=== PATIENT | female | born 1970 | race Caucasian/White ===

== ENCOUNTER 2018-11-19 07:08 | Day surgery (SDC) | payer MEDICARE, OTHER ==
[~2018-11-19] VITALS: Ht 147.3 cm; Wt 53.2 kg
[~2018-11-19 07:08] MED LIST: ACETAMINOPHEN 325 MG TABLET PO PRN; CYCLOPENTOLATE HCL 2% 2 ML OPHTHALMIC SOLUTION ONE; DICLOFENAC SODIUM 0.1% 2.5 ML OPHTHALMIC SOLUTION ONE; MOXIFLOXACIN HCL 0.5% 3 ML OPHTHALMIC SOLUTION ONE; PHENYLEPHRINE HCL 2.5% 2 ML OPHTHALMIC SOLUTION ONE; RINGERS SOLUTION,LACTATED 500 ML IV ONE; TETRACAINE HCL/PF 0.5% 4 ML OPHTHALMIC SOLUTION OD ONE; TETRACAINE HCL/PF 0.5% 4 ML OPHTHALMIC SOLUTION ONE
[2018-11-19] MEDS ORDERED: ONDANSETRON HCL 4 MG/2 ML VIAL IVP ONE (07:09)
[2018-11-19] MEDS ORDERED: MIDAZOLAM HCL 2 MG/2 ML VIAL IVP ONE (07:09)
[2018-11-19] MEDS ORDERED: FentaNYL CITRATE-PF 100 MCG/2 ML VIAL IVP ONE (07:09)
[2018-11-19] MEDS ORDERED: PROPOFOL 1% 20 ML VIAL IVP ONE (07:09)
[2018-11-19] MEDS ORDERED: LIDOCAINE/PF 2% 5 ML VIAL IM ONE (07:09)
[2018-11-19] MEDS ORDERED: ROCURONIUM BROMIDE 10 MG/ML 5 ML VIAL IVP ONE (07:09)
[2018-11-19] MEDS ORDERED: ARIP10TA8 PO (07:43)
[2018-11-19] MEDS ORDERED: ZOLP10TA7 PO (07:43)
[2018-11-19] MEDS ORDERED: OMEP20 PO (07:43)
[2018-11-19] MEDS ORDERED: DOXY50 PO (07:43)
[2018-11-19] MEDS ORDERED: TYLENOL WITH CODEINE PO (07:43)
[2018-11-19] MEDS ORDERED: LEVO100 PO (07:43)
[2018-11-19] MEDS ORDERED: OXCA300T29 PO (07:43)
[2018-11-19] MEDS ORDERED: DICL2.5D8 OD (07:43)
[2018-11-19] MEDS ORDERED: MEMA10TA11 PO (07:43)
[2018-11-19] MEDS: PHENYLEPHRINE HCL 2.5% 2 ML OPHTHALMIC SOLUTION OD SCH ×3 (07:51→08:09)
[2018-11-19] MEDS ORDERED: CYCLOPENTOLATE HCL 1% 2 ML OPHTHALMIC SOLUTION ONE (07:54)
[2018-11-19] MEDS ORDERED: TROPICAMIDE 1% 2 ML OPHTHALMIC SOLUTION ONE (07:54)
[2018-11-19] MEDS ORDERED: OFLOXACIN 0.3% 5 ML OPHTHALMIC SOLUTION ONE (07:55)
[2018-11-19] MEDS ORDERED: FLURBIPROFEN SODIUM 0.03% 2.5 ML OPHTHALMIC SOLUTION ONE (07:55)
[2018-11-19] MEDS: TROPICAMIDE 1% 2 ML OPHTHALMIC SOLUTION OD SCH ×3 (07:56→08:09)
[2018-11-19] MEDS: CYCLOPENTOLATE HCL 1% 2 ML OPHTHALMIC SOLUTION OD SCH ×3 (07:56→08:09)
[2018-11-19] MEDS: OFLOXACIN 0.3% 5 ML OPHTHALMIC SOLUTION OD SCH ×3 (07:56→08:09)
[2018-11-19] MEDS: FLURBIPROFEN SODIUM 0.03% 2.5 ML OPHTHALMIC SOLUTION OD SCH ×3 (07:56→08:09)
[2018-11-19] MEDS ORDERED: SUGAMMADEX SODIUM 200 MG/2 ML VIAL IVP ONE (08:54)
[2018-11-19] MEDS ORDERED: FentaNYL CITRATE-PF 100 MCG/2 ML VIAL IVP PRN (09:00)
[2018-11-19] MEDS ORDERED: MEPERIDINE-PF 25 MG/ML VIAL IVP PRN (09:00)
[2018-11-19] MEDS ORDERED: HYDROmorphone 2 MG/ML SYRINGE IVP PRN (09:00)
[2018-11-19] MEDS ORDERED: OXYGEN THERAPY IH SCH (20:00)
== END 2018-11-19 10:30 | disposition home or self-care (01) ==
LOC: SURGERY 07:08
PROVIDERS: ATTEND Ophthalmology
DX: H25.11 Age-related nuclear cataract, right eye (principal); H26.20 Unspecified complicated cataract; E03.9 Hypothyroidism, unspecified; Q90.9 Down syndrome, unspecified; I25.2 Old myocardial infarction; Z79.899 Other long term (current) drug therapy; Z98.890 Other specified postprocedural states
CPT/HCPCS: 66982; 84703; 93005; C1780; J2250; J2405; J2704; J3010; J3490 ×2; J7120

== ENCOUNTER → 2018-12-31 | Day surgery (SDC) | payer MEDICARE, OTHER ==
[~2018-12-31] MED LIST changes: -ACETAMINOPHEN 325 MG TABLET PO PRN; +ARIP10TA8 PO; +CYCLOPENTOLATE HCL 1% 2 ML OPHTHALMIC SOLUTION ONE; -CYCLOPENTOLATE HCL 2% 2 ML OPHTHALMIC SOLUTION ONE; +DICL2.5D8 OD; -DICLOFENAC SODIUM 0.1% 2.5 ML OPHTHALMIC SOLUTION ONE; +DOXY50 PO; +KETOROLAC TROMETHAMINE 0.5% 5 ML OPHTHALMIC SOLUTION ONE; +LEVO100 PO; +MEMA10TA11 PO; +OMEP20 PO; +OXCA300T29 PO; -TETRACAINE HCL/PF 0.5% 4 ML OPHTHALMIC SOLUTION OD ONE; +TROPICAMIDE 1% 2 ML OPHTHALMIC SOLUTION ONE; +TYLENOL WITH CODEINE PO; +ZOLP10TA7 PO
[2018-12-31] MEDS: KETOROLAC TROMETHAMINE 0.5% 5 ML OPHTHALMIC SOLUTION OS SCH ×3 (07:47→07:58)
[2018-12-31] MEDS: TETRACAINE HCL/PF 0.5% 4 ML OPHTHALMIC SOLUTION OS SCH ×3 (07:47→07:58)
[2018-12-31] MEDS: MOXIFLOXACIN HCL 0.5% 3 ML OPHTHALMIC SOLUTION OS SCH ×3 (07:47→07:58)
[2018-12-31] MEDS: TROPICAMIDE 1% 2 ML OPHTHALMIC SOLUTION OS SCH ×3 (07:47→07:58)
[2018-12-31] MEDS: CYCLOPENTOLATE HCL 1% 2 ML OPHTHALMIC SOLUTION OS SCH ×3 (07:47→07:58)
[2018-12-31] MEDS: PHENYLEPHRINE HCL 2.5% 2 ML OPHTHALMIC SOLUTION OS SCH ×3 (07:47→07:58)
== END | disposition home or self-care (01) ==
LOC: SURGERY 06:35
PROVIDERS: ATTEND Ophthalmology
DX: H26.8 Other specified cataract (principal); Q90.9 Down syndrome, unspecified; Z79.899 Other long term (current) drug therapy; Z98.41 Cataract extraction status, right eye; Z96.1 Presence of intraocular lens; Z98.890 Other specified postprocedural states; Z53.8 Procedure and treatment not carried out for other reasons
CPT/HCPCS: 93005; J7120

== ENCOUNTER 2020-03-23 06:47 | Day surgery (SDC) | payer MEDICARE, OTHER ==
[2020-03-22 15:26] LABS: COVID AG,FIA SOURCE NASOPHARYNGEAL
[~2020-03-23] VITALS: Ht 154.9 cm; Wt 67.3 kg
[~2020-03-23 06:47] MED LIST changes: -OXCA300T29 PO; +OXCA300T57 PO; -ZOLP10TA7 PO; +ZOLP10TA8 PO
[2020-03-23] MEDS ORDERED: FentaNYL CITRATE-PF 100 MCG/2 ML VIAL IVP ONE (06:48)
[2020-03-23] MEDS ORDERED: DEXAMETHASONE SOD PHOS 4 MG/ML VIAL IVP ONE (06:48)
[2020-03-23] MEDS ORDERED: PrednisoLONE ACETATE 1% 5 ML OPHTHALMIC SUSPENSION OS ONE (06:48)
[2020-03-23] MEDS ORDERED: 0.9% SODIUM CHLORIDE 10 ML VIAL IVP ONE (06:48)
[2020-03-23] MEDS ORDERED: PROPOFOL 1% 20 ML VIAL IVP ONE (06:48)
[2020-03-23] MEDS ORDERED: LIDOCAINE/PF 2% 5 ML VIAL IM ONE (06:48)
[2020-03-23] MEDS ORDERED: MIDAZOLAM HCL 2 MG/2 ML VIAL IVP ONE (06:48)
[2020-03-23] MEDS ORDERED: LIDOCAINE/PF 1% 2 ML VIAL IM ONE (06:48)
[2020-03-23] MEDS ORDERED: NEOMYCIN/POLYMYXIN B/DEXAMETH 3.5 GM OPHTHALMIC OINTMENT OS ONE (06:48)
[2020-03-23] MEDS ORDERED: HYALURONATE SODIUM 12 MG/ML 0.8 ML SYRINGE IO ONE (06:48)
[2020-03-23] MEDS ORDERED: BALANCED SALT 15 ML OPHTHALMIC IRRIG.SOLN IO ONE (06:48)
[2020-03-23] MEDS ORDERED: ONDANSETRON HCL 4 MG/2 ML VIAL IVP ONE (06:48)
[2020-03-23] MEDS ORDERED: EPINEPHrine 1:1,000 [1 MG/ML] AMP IM ONE (06:48)
[2020-03-23] MEDS ORDERED: POVIDONE-IODINE 10% 15 ML SOLUTION UD TP ONE (06:48)
[2020-03-23] MEDS: MOXIFLOXACIN HCL 0.5% 3 ML OPHTHALMIC SOLUTION OS SCH ×3 (07:22→07:33)
[2020-03-23] MEDS: CYCLOPENTOLATE HCL 1% 2 ML OPHTHALMIC SOLUTION OS SCH ×3 (07:22→07:33)
[2020-03-23] MEDS: TETRACAINE HCL/PF 0.5% 4 ML OPHTHALMIC SOLUTION OS SCH ×3 (07:22→07:33)
[2020-03-23] MEDS: TROPICAMIDE 1% 2 ML OPHTHALMIC SOLUTION OS SCH ×3 (07:22→07:33)
[2020-03-23] MEDS: KETOROLAC TROMETHAMINE 0.5% 5 ML OPHTHALMIC SOLUTION OS SCH ×3 (07:22→07:33)
[2020-03-23] MEDS: PHENYLEPHRINE HCL 2.5% 2 ML OPHTHALMIC SOLUTION OS SCH ×3 (07:22→07:33)
== END 2020-03-23 10:05 | disposition home or self-care (01) ==
LOC: SURGERY 06:47
PROVIDERS: ATTEND Ophthalmology
DX: H25.12 Age-related nuclear cataract, left eye (principal); K21.9 Gastro-esophageal reflux disease without esophagitis; Q90.9 Down syndrome, unspecified; Z20.828 Contact with and (suspected) exposure to other viral communicable diseases; Z95.0 Presence of cardiac pacemaker; Z98.890 Other specified postprocedural states
CPT/HCPCS: 66982; 87426; 93005; C9803; J0171; J1100; J2250; J2405; J2704; J3010; J3490 ×3; V2632